=== PATIENT | male | born 1980 | race Caucasian/White ===

== ENCOUNTER 2018-09-21 04:52 | Observation (INO) ==
[2018-09-21] MEDS ORDERED: Sodium Chlor 0.9% Inj 500 ML IV.SIG ONE (05:14)
--- NOTE | 2018-09-21 05:21 | ED ---
HPI General Chief complaint: Shortness of Breath/Dyspnea Stated complaint: SOB Time Seen by Provider: 09/21/18 05:03 Source: patient Mode of arrival: ambulatory Limitations: no limitations History of Present Illness HPI narrative: The patient is a 37 year old male who presents to the [facility] emergency department with a history of central chest pain and shortness of breath that he reports is been coming and going for the last 10 days. He reports that the symptoms have become more frequent over the last 2 days thus prompting the emergency department visit. He reports that the pain in his chest is a burning sensation like he has indigestion. He reports having associated nausea without vomiting. He reports that he has had diarrhea 1-2 times per day since the onset. He denies having any blood in his stool or black or tarry stools. The patient denies any prior history of high blood pressure, hyperlipidemia, diabetes mellitus, DVT, or PE. He does report that he smokes 1 pack of cigarettes per day. He has a family history of heart disease specifically in his dad who at the age of 56 from a myocardial infarction. He denies ever having a stress test done previously. He reports that at 2 AM he did take an adult aspirin. On review of systems otherwise, he denies having any. He denies having any known recent fevers, cough, congestion , neck pain, abdominal pain, vomiting, urinary symptoms, or neurologic symptoms. Related Data Home Medications Medication Instructions Recorded Confirmed No Known Home Medications 09/21/18 09/21/18 Allergies Allergy/AdvReac Type Severity Reaction Status Date / Time No Known Allergies Allergy Verified 09/21/18 04:54 Review of Systems ROS: all other systems reviewed are negative [facility], [facility] Medical History Medical History Asthenia (Acute) Kidney stones (Acute) Surgical History Surgical History No history of previous surgery (Acute) Social History Social History Substance History: No History of Abuse Second Hand Smoke Exposure: Yes Smoking Status: Current every day smoker Tobacco Type: Cigarettes Packs Per Day: 1 Cigarettes Per Day: 20.0 How Often Do You Have a Drink Containing Alcohol: 4 or more times a week Recent Travel in [facility] within the Last 8 Weeks: No Recent Out of Country Travel within the Last 8 Weeks: No Immunization History Tetanus Immunization: >5 Years Exam Const General: cooperative, no acute distress and well developed Nutritional Appearance: well nourished Orientation: alert, awake and oriented x3 HENMT Head: normocephalic and atraumatic Nose: no nasal discharge and no epistaxis Mouth: moist mucous membranes Throat: posterior oropharynx normal and uvula midline Eyes Sclera: normal sclerae Pupils: PERRL Neck Neck: no meningeal signs, trachea midline and no JVD Resp Effort & Inspection: no use of accessory muscles Auscultation: clear to auscultation bilaterally Cardio Rate: regular rate Rhythm: regular rhythm Heart Sounds: no gallops, no murmurs and no rubs GI Inspection: non-distended Palpation: soft, no hepatosplenomegaly, no guarding, not rigid and nontender Auscultation: normal bowel sounds Back/Spine/Pelvis Back: no CVA tenderness Skin General: dry skin (warm) Neuro General: alert, awake, oriented x3 and other (Grossly nonfocal.) Speech: speech normal Motor: no movement abnormalities noted Extrem General: normal to inspection (2+ pulses in all 4 extremities.), no calf tenderness, no clubbing, no cyanosis and no edema Psych Mood: congruent mood Affect: normal affect Judgment: judgment good Course Initial Documented Vital Signs Temperature 98.2 F 09/21/18 04:54 Pulse Rate 92 H 09/21/18 04:54 Respiratory Rate 18 09/21/18 04:54 Blood Pressure 126/89 09/21/18 04:54 Pulse Oximetry 99 09/21/18 04:54 Last Documented Vital Signs Temperature 98.2 F 09/21/18 04:54 Pulse Rate 79 09/21/18 05:20 Respiratory Rate 20 09/21/18 05:06 Blood Pressure 124/82 09/21/18 05:06 Pulse Oximetry 100 09/21/18 05:20 Medical Decision Making [facility] Narrative Medical decision making narrative: During the course of the patient's emergency department visit, the patient's history, examination, and differential diagnosis were reviewed with the patient. The patient was placed on a hall monitor with oximetry and frequent blood pressure monitoring. The patient had IV access obtained and blood work sent for analysis. Diagnostic evaluation was started regarding the patient's chest pain with shortness of breath. The patient was initially provided nitroglycerin sublingual x1. The patient reports that he did take an adult aspirin at 2 AM today. The patient was given famotidine 20 mg IV. The patient was given normal saline at 500 mL bolus x1. The patient's diagnostic studies are remarkable for a normal white count at 11, hemoglobin 14.3, platelets 218 with a monocyte of 8.3, eosinophil of 5.3, PT PTT within normal limits, d-dimer is noted to be within normal limits at 0.24 decreasing the likelihood of pulmonary embolism in this patient with no other significant risk factors. CMP is remarkable for a GFR of 84, glucose 125, CPK 580 with a normal MB percent, troponin I less than 0.02, lipase within normal limits. A chest x-ray shows no acute cardiopulmonary disease. The patient's results were discussed with the patient, including the plan of care. I explained that further testing and/ or monitoring is indicated based on the patient's history, examination, and/ or laboratory findings. Therefore, I recommended admission for additional evaluation. The patient expressed understanding and was agreeable with this plan. The patient was admitted to the hospital in stable condition and sent to a bed under the care of the [facility]. Medical Screen Exam Complete: Yes Emergency Medical Condition: Yes Differential Diagnosis Differential Diagnosis: Acute coronary syndrome, versus pulmonary embolism, versus pneumothorax, versus acid reflux, versus anxiety disorder Medical Records Medical records reviewed: Yes I reviewed the patient's medical records. Lab Data Lab results reviewed: Yes I reviewed the patient's lab results. Result diagrams: 09/21/18 05:20 09/21/18 05:20 Lab Results 09/21/18 09/21/18 09/21/18 Range/Units 05:20 05:20 05:20 WBC 11.0 (4.0-11.0) th/mm3 RBC 4.11 L (4.50-5.90) mil/mm3 Hgb 14.3 (13.0-17.0) gm/dL Hct 40.6 (39.0-51.0) % MCV 98.8 (80.0-100.0) fL MCH 34.7 H (27.0-34.0) pg MCHC 35.2 (32.0-36.0) % RDW 13.5 (11.6-17.2) % Plt Count 218 (150-450) th/mm3 MPV 8.1 (7.0-11.0) fL Neut % (Auto) 47.4 (16.0-70.0) % Lymph % (Auto) 38.0 (9.0-44.0) % Appling % (Auto) 8.3 H (0.0-8.0) % Eos % (Auto) 5.3 H (0.0-4.0) % Baso % (Auto) 1.0 (0.0-2.0) % Neut # (Auto) 5.2 (1.8-7.7) th/mm3 Lymph # (Auto) 4.2 (1.0-4.8) th/mm3 Appling # (Auto) 0.9 (0.0-0.9) th/mm3 Eos # (Auto) 0.6 H (0.0-0.4) th/mm3 Baso # (Auto) 0.1 (0.0-0.2) th/mm3 WBC Differential . Differential Comment Auto diff final PT 10.2 (9.8-11.6) sec INR 1.0 Ratio APTT 27.8 (23.4-31.7) sec D-Dimer Quant (PE/DVT) 0.24 (0.00-0.50) mg/L FEU Sodium (136-145) meq/L Potassium (3.5-5.1) meq/L Chloride (98-107) meq/L Carbon Dioxide (21.0-32.0) meq/L Anion Gap (5-15) meq/L BUN (7-18) mg/dL Creatinine (0.60-1.30) mg/dL Estimated GFR (>89) mL/min Random Glucose (74-106) mg/dL Calcium (8.5-10.1) mg/dL Magnesium (1.5-2.5) mg/dL Total Bilirubin (0.2-1.0) mg/dL AST (15-37) U/L ALT (12-78) U/L Alkaline Phosphatase (45-117) U/L Total Creatine Kinase (39-308) U/L CK-MB (CK-2) (0.5-3.6) ng/mL CK-MB (CK-2) % (0.0-4.0) % Troponin I (0.02-0.05) ng/mL B-Natriuretic Peptide 5 (0-100) pg/mL Total Protein (6.4-8.2) g/dL Albumin (3.4-5.0) g/dL Lipase (73-393) U/L 09/21/18 Range/Units 05:20 WBC (4.0-11.0) th/mm3 RBC (4.50-5.90) mil/mm3 Hgb (13.0-17.0) gm/dL Hct (39.0-51.0) % MCV (80.0-100.0) fL MCH (27.0-34.0) pg MCHC (32.0-36.0) % RDW (11.6-17.2) % Plt Count (150-450) th/mm3 MPV (7.0-11.0) fL Neut % (Auto) (16.0-70.0) % Lymph % (Auto) (9.0-44.0) % App[place] % (Auto) (0.0-8.0) % Eos % (Auto) (0.0-4.0) % Baso % (Auto) (0.0-2.0) % Neut # (Auto) (1.8-7.7) th/mm3 Lymph # (Auto) (1.0-4.8) th/mm3 [place] # (Auto) (0.0-0.9) th/mm3 Eos # (Auto) (0.0-0.4) th/mm3 Baso # (Auto) (0.0-0.2) th/mm3 WBC Differential Differential Comment PT (9.8-11.6) sec INR Ratio APTT (23.4-31.7) sec D-Dimer Quant (PE/DVT) (0.00-0.50) mg/L FEU Sodium 142 (136-145) meq/L Potassium 3.8 (3.5-5.1) meq/L Chloride 107 (98-107) meq/L Carbon Dioxide 26.8 (21.0-32.0) meq/L Anion Gap 8 (5-15) meq/L BUN 12 (7-18) mg/dL Creatinine 1.00 (0.60-1.30) mg/dL Estimated GFR 84 L (>89) mL/min Random Glucose 125 H (74-106) mg/dL Calcium 8.8 (8.5-10.1) mg/dL Magnesium 2.1 (1.5-2.5) mg/dL Total Bilirubin 0.2 (0.2-1.0) mg/dL AST 34 (15-37) U/L ALT 73 (12-78) U/L Alkaline Phosphatase 93 (45-117) U/L Total Creatine Kinase 580 H (39-308) U/L CK-MB (CK-2) 8.2 H (0.5-3.6) ng/mL CK-MB (CK-2) % 1.4 (0.0-4.0) % Troponin I Less than 0.02 L (0.02-0.05) ng/mL B-Natriuretic Peptide (0-100) pg/mL Total Protein 6.8 (6.4-8.2) g/dL Albumin 3.5 (3.4-5.0) g/dL Lipase 113 (73-393) U/L Imaging Data Radiologist's impression: Chest X-Ray 09/21/18 05:14 CONCLUSION: Negative examination. ECG Data Attestation: I personally reviewed and interpreted this ECG as follows: Interpretation: EKG done on arrival. The patient's EKG shows a sinus rhythm heart rate of 75, QRS duration is 104 ms, QTC [address] segment elevation, T waves are inverted in lead III, V1. Discharge Plan Discharge Disposition Patient Disposition: 30 Still Patient Discharge Details Diagnosis: Chest pain, rule out acute myocardial infarction Physicians Team ED Provider: Marbella Magallon Primary Care Provider: Primary Care Talia Maloney Attending Provider: Joe Guan Discharge Interventions Interventions: Vital Signs Last Done: 09/21/18 05:06 Status ED Status: Admitted Observation Patient
[2018-09-21 05:41] LABS: Baso # (Auto) 0.1 th/mm3 (0.0-0.2); Eos # (Auto) 0.6 th/mm3 (0.0-0.4); Eos % (Auto) 5.3 % (0.0-4.0); Hematocrit 40.6 % (39.0-51.0); Hemoglobin 14.3 gm/dL (13.0-17.0); Lymph # (Auto) 4.2 th/mm3 (1.0-4.8); Mean Corpuscular HGB Conc 35.2 % (32.0-36.0); Mean Corpuscular Hemoglobin 34.7 pg (27.0-34.0); Mean Corpuscular Volume 98.8 fL (80.0-100.0); Mean Platelet Volume 8.1 fL (7.0-11.0); Mono # (Auto) 0.9 th/mm3 (0.0-0.9); Mono % (Auto) 8.3 % (0.0-8.0); Neut # (Auto) 5.2 th/mm3 (1.8-7.7); Neut % (Auto) 47.4 % (16.0-70.0); Platelet Count 218 th/mm3 (150-450); Red Blood Count 4.11 mil/mm3 (4.50-5.90); Red Cell Distribution Width 13.5 % (11.6-17.2)
--- NOTE | 2018-09-21 05:47 | XR ---
EXAM DATE: 09/21/2018 5:40 AM EST AGE/SEX: 37 years / Male INDICATIONS: Shortness of breath. Chest discomfort. CLINICAL DATA: This is the patient's initial encounter. Patient reports that signs and symptoms have been present for 2 weeks and indicates a pain score of 0/10. MEDICAL/SURGICAL HISTORY: Asthma. Smoker. None. COMPARISON: No prior exams available for comparison. FINDINGS: A single AP view of the chest demonstrates the lungs to be symmetrically aerated without evidence of mass, infiltrate or effusion. The cardiomediastinal contours are unremarkable. Osseous structures a re intact. CONCLUSION: Negative examination. Electronically signed by: Pal Coreas MD 09/21/2018 5:45 AM EST
[2018-09-21 05:49] LABS: Alanine Aminotransferase 73 U/L (12-78); Albumin 3.5 g/dL (3.4-5.0); Anion Gap 8 meq/L (5-15); Aspartate Aminotransferase 34 U/L (15-37); Blood Urea Nitrogen 12 mg/dL (7-18); Calcium 8.8 mg/dL (8.5-10.1); Carbon Dioxide 26.8 meq/L (21.0-32.0); Chloride 107 meq/L (98-107); Glomerular Filtration Rate 84 mL/min (>89); Glucose,Random 125 mg/dL (74-106); Lipase 113 U/L (73-393); Magnesium 2.1 mg/dL (1.5-2.5); Potassium 3.8 meq/L (3.5-5.1); Sodium 142 meq/L (136-145)
[2018-09-21 05:54] LABS: Activated Partial Thrombo Time 27.8 sec (23.4-31.7); Alkaline Phosphatase 93 U/L (45-117); Creatine Kinase 580 U/L (39-308); Prothrombin Time 10.2 sec (9.8-11.6); Total Protein 6.8 g/dL (6.4-8.2)
[2018-09-21 05:55] LABS: D-Dimer 0.24 mg/L FEU (0.00-0.50)
[2018-09-21] MEDS ORDERED: Famotidine PF Inj 20 MG/2 ML Vial IV.PUSH ONE (05:59)
[2018-09-21] MEDS ORDERED: Acetaminophen 500 MG Tablet PO PRN (06:00)
[2018-09-21] MEDS ORDERED: Sod Chloride 0.9% Inj 1,000 ML IV.CONT SCH (06:00)
[2018-09-21 06:06] LABS: CKMB Percent 1.4 % (0.0-4.0); Creatine Kinase MB 8.2 ng/mL (0.5-3.6)
[2018-09-21 08:09] VITALS: BP 97/58; PULSE 67; RESP 16; TEMP 98.4; O2SAT 98
--- NOTE | 2018-09-21 08:18 | MH ---
cc: Herbert Westfall MD DATE OF ADMISSION: 09/21/2018 HISTORY OF PRESENT ILLNESS: This is a 37-year-old gentleman who presents to the emergency department with shortness of breath. He stated that as he was going to bed last night at about 4 a.m., he began having problems with shortness of breath. This was associated with some chest tightness, which is rather vague. No cough or sputum production has been present. No hemoptysis has been noted. No prior history of any chest discomfort or shortness of breath has been present. He has had at some symptoms over the last 2 days, but this was particularly bad. No ankle edema or swelling has been present. He has had no exertional discomfort. PAST MEDICAL HISTORY: Essentially unremarkable. He also smokes approximately a pack of cigarettes per day. No history of hypertension, diabetes, or hyperlipidemia has been present. He has had no other hospitalizations or ongoing medical problems. Past medical history is otherwise normal. FAMILY HISTORY: Significant for father who had an VA at age 56 and from that. REVIEW OF SYSTEMS: Unremarkable. SOCIAL HISTORY: The patient smokes as above. Drinks moderately. 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 PHYSICAL EXAMINATION: GENERAL: He is awake and alert. He is in no acute distress. VITAL SIGNS: Blood pressure is 120/70, pulse is 70 and regular, O2 saturation is 100% on room air. HEENT: Unremarkable. NECK: There is no neck vein distention. Carotids are normal. LUNGS: Clear. CARDIOVASCULAR: Reveals a regular rate and rhythm. There is no significant murmur. No gallop is noted. ABDOMEN: Soft without tenderness or organomegaly. EXTREMITIES: Reveal no edema. Peripheral pulses are intact. ASSESSMENT AND PLAN: The patient has very atypical symptoms. His electrocardiogram is essentially normal. We will get a D-dimer to rule out a remote possibility of pulmonary emboli, although I think this is unlikely with a normal pulse and O2 saturations. If those are unremarkable, then will also consider treadmill exercise testing to rule out occult coronary artery disease. Smoking cessation has been discussed. MD DELVIS Mustafa/ashok , 07:17 AM , 07:24 AM
[2018-09-21] MEDS ORDERED: Famotidine 20 MG Tablet PO SCH (09:00)
--- NOTE | 2018-09-22 07:34 | ECG ---
Date Performed: 09/21/2018 Time Performed: 05:29:50 PTAGE: 37 years EKG: Sinus rhythm NONSPECIFIC ST ELEVATION BORDERLINE ECG NO PREVIOUS TRACING DOCTOR: Lelia Dupree Interpretating Date/Time 09/22/2018 07:32:43
--- NOTE | 2018-09-22 07:34 | TR ---
Date Performed: 09/21/2018 Time Performed: 08:25:39 DOCTOR: Lelia Dupree DRUG LIST: CLINICAL HISTORY: CP R/O ACS REASON FOR TEST: REASON FOR ENDING: OBSERVATION: CONCLUSION: ASHLEY PROTOCOL. NO CP. TEST STOPPED AFTER EXCEEDING GOAL HR SECONDARY TO SOB AND LEG FATIGUE.Maximum FB=763 % Max HR Achieved=99.0% Maximum VY=922/70 Total Exercise Time=6:30 COMMENTS: No ischemia
== END 2018-09-21 09:32 | disposition home or self-care (01) ==
LOC: NEDA 04:52 → NEPC 04:52 → NEDA 06:43 → NEPGCP 06:49
PROVIDERS: ADMIT Internal Medicine Interventional Cardiology; ATTEND Internal Medicine Interventional Cardiology